=== PATIENT | male | born 1985 | race Caucasian/White ===

== ENCOUNTER 2022-01-29 19:43 | Emergency (ER) | payer BC, SELFPAY ==
[2022-01-29 19:50] VITALS: BP 104/64; PULSE 18; RESP 18; TEMP 36.6; O2SAT 99; BMI 29.4
--- NOTE | 2022-01-29 21:53 | W.ED.GENADLT ---
Documented by User: HESHAM Addison 01/29/22 23:14 HPI - General Adult General: Chief complaint: General Medical Stated complaint: pain in groin Time Seen by Provider: 01/29/22 21:51 History of Present Illness: 36-year-old male patient comes in today with complaints of right testicular pain. Patient reports that he notes a palpable cyst like structure to the area just above the testicle on the right side. Patient was treated for 7 days with doxycycline a week ago for probable epididymitis. Patient went back to the urgent care today and was referred to the emergency room for concerns of possible testicular torsion. Associated symptoms: Deny chest pain, dyspnea or rash Review of Systems General: Reports: 10 or more systems reviewed and unremarkable except in HPI and below Const: Denies: fever(s) Card: Denies: chest pain Resp: Denies: dyspnea : Reports: testicular pain; Denies: penile discharge Musc: Denies: back pain Skin/Breast: Denies: rash PFSH ED PFSH: Social History Smoking and tobacco status: never smoked Physical Exam Const: COMMON NORMALS: alert Neck/C-Spine: COMMON NORMALS: full ROM Resp: COMMON NORMALS: normal respiratory effort Cardio: COMMON NORMALS: regular rate RATE: regular rate : PENIS: normal penis and circumcised TESTES: Yes testicular lie normal and Yes epididymal mass Epididymal mass laterality: right Extremity: COMMON NORMALS: normal to inspection Neuro: SENSORIUM/ORIENTATION: Yes alert Skin: COMMON NORMALS: no rashes or lesions noted GENERAL SKIN EXAM: no rashes or lesions noted Course Vital Signs: Vital signs: Vital Signs Temperature 98 F 01/29/22 19:50 Pulse Rate 18 L 01/29/22 19:50 Respiratory Rate 18 01/29/22 19:50 Blood Pressure 104/64 01/29/22 19:50 Pulse Oximetry 99 01/29/22 19:50 [facility] - General Adult Medical Decision Making 36-year-old male patient comes in today for complaints of right testicular pain. On exam we note a nodule to the right epididymal sac of the right testicle. Remainder of exam was unremarkable. Vital signs were normal. Differential diagnosis includes but not limited to epididymitis, epididymal cyst, testicular torsion. Ultrasound of the scrotum noted no epididymitis or testicular torsion but did see a small epididymal cyst. We will go ahead and cover with Bactrim to cover for E. coli and secondary infection Case management requested for follow-up with urology. Patient reported understanding agreed to plan. Lab Data Radiology Impressions Scrotum Ultrasound 01/29/22 21:59 IMPRESSION: Small right epididymal head cyst. Otherwise unremarkable exam. Laboratory Results Urine Color Yellow (Yellow) 01/29/22 23:15 Urine Appearance Clear (CLEAR) 01/29/22 23:15 Urine pH 6 (5-7) 01/29/22 23:15 Ur Specific [place] 1.015 (1.005-1.030) 01/29/22 23:15 Urine Protein Neg (Negative) 01/29/22 23:15 Urine Glucose (UA) Norm (Normal) 01/29/22 23:15 Urine Ketones Negative (Negative) 01/29/22 23:15 Urine Blood Neg (Negative) 01/29/22 23:15 Urine Nitrate Negative (Negative) 01/29/22 23:15 Urine Bilirubin Neg (Negative) 01/29/22 23:15 Urine Urobilinogen Norm mg/dL (Negative) 01/29/22 23:15 Ur Leukocyte Esterase Negative (Negative) 01/29/22 23:15 Discharge Plan Discharge Patient Disposition: Home Clinical Impression: Epididymal cyst Condition: Stable Prescriptions: New sulfamethoxazole-trimethoprim 800-160 mg tablet 1 tab PO BID 7 Days Qty: 14 0RF No Action bupropion HCl [Wellbutrin SR] 150 mg tablet sustained-release 12 hr 150 mg PO BID 0RF Discharge Orders: Discharge ED (Routine); Ordered 01/29/22 Ordered By: Addison Jones Discharge Diet: Usual diet Discharge Activity: Increase activity as tolerated Patient Instructions: Scrotal Pain (ED) Activity Restrictions/Additional Instructions: Drink plenty of fluids. Use acetaminophen and ibuprofen for pain. Take antibiotics 1 tablet twice a day for the next 7 days. Follow-up with urologist for further recommendations. Return to ER for new concerns. Coding Level of Care Code ED Deep Fat Cook Fry for [place]rence[place] Fwd Exam Detailed Documented by User: Mayank Flynn DO 01/30/22 00:51 HPI - General Adult General: Chief complaint: General Medical Stated complaint: pain in groin Time Seen by Provider: 01/29/22 21:51 [facility] ED PFSH: Social History Smoking and tobacco status: never smoked Course Vital Signs: Vital signs: Vital Signs Temperature 98 F 01/29/22 19:50 Pulse Rate 18 L 01/29/22 19:50 Respiratory Rate 18 01/29/22 19:50 Blood Pressure 104/64 01/29/22 19:50 Pulse Oximetry 99 01/29/22 19:50 MDM - General Adult Medical Decision Making 36-year-old male patient comes in today for complaints of right testicular pain. On exam we note a nodule to the right epididymal sac of the right testicle. Remainder of exam was unremarkable. Vital signs were normal. Differential diagnosis includes but not limited to epididymitis, epididymal cyst, testicular torsion. Ultrasound of the scrotum noted no epididymitis or testicular torsion but did see a small epididymal cyst. We will go ahead and cover with Bactrim to cover for E. coli and secondary infection Case management requested for follow-up with urology. Patient reported understanding agreed to plan. This patient was originally seen by HESHAM Severino.? I agree with his history, evaluation, and treatment. Lab Data Radiology Impressions Scrotum Ultrasound 01/29/22 21:59 IMPRESSION: Small right epididymal head cyst. Otherwise unremarkable exam. Laboratory Results Urine Color Yellow (Yellow) 01/29/22 23:15 Urine Appearance Clear (CLEAR) 01/29/22 23:15 Urine pH 6 (5-7) 01/29/22 23:15 Ur Specific [place] 1.015 (1.005-1.030) 01/29/22 23:15 Urine Protein Neg (Negative) 01/29/22 23:15 Urine Glucose (UA) Norm (Normal) 01/29/22 23:15 Urine Ketones Negative (Negative) 01/29/22 23:15 Urine Blood Neg (Negative) 01/29/22 23:15 Urine Nitrate Negative (Negative) 01/29/22 23:15 Urine Bilirubin Neg (Negative) 01/29/22 23:15 Urine Urobilinogen Norm mg/dL (Negative) 01/29/22 23:15 Ur Leukocyte Esterase Negative (Negative) 01/29/22 23:15 Discharge Plan Discharge Patient Disposition: Home Clinical Impression: Epididymal cyst Condition: Stable Prescriptions: New sulfamethoxazole-trimethoprim 800-160 mg tablet 1 tab PO BID 7 Days Qty: 14 0RF No Action bupropion HCl [Wellbutrin SR] 150 mg tablet sustained-release 12 hr 150 mg PO BID 0RF Discharge Orders: Discharge ED (Routine); Ordered 01/29/22 Ordered By: Addison Jones Discharge Diet: Usual diet Discharge Activity: Increase activity as tolerated Patient Instructions: Scrotal Pain (ED) Activity Restrictions/Additional Instructions: Drink plenty of fluids. Use acetaminophen and ibuprofen for pain. Take antibiotics 1 tablet twice a day for the next 7 days. Follow-up with urologist for further recommendations. Return to ER for new concerns. Coding Level of Care Code ED Deep Fat Cook Fry for [place] Fwd Exam Detailed
--- NOTE | 2022-01-29 21:59 | USR_ITS ---
PROCEDURE INFORMATION: Exam: US Scrotum and Artery or Vein of the Abdominal and/or Reproductive Organs, Limited Scrotum Exam date and time: 01/29/2022 10:12 PM Age: 36 years old Clinical indication: Scrotum pain; Additional info: Right epididymal mass TECHNIQUE: Imaging protocol: Real-time ultrasound of the scrotum. Real-time duplex ultrasound scan of the arterial or venous flow with cardona scale, color Doppler flow and spectral waveform analysis with image documentation. Limited Duplex exam focused of the scrotum. Duplex images required to evaluate for torsion and other vascular conditions. COMPARISON: No relevant prior studies available. FINDINGS: Right testicle: Right testicle measures 4.3 x 2.4 x 2.7 cm. Left testicle: Left testicle measures 4.1 x 2.3 x 2.7 cm. Epididymides: There is a right epididymal head cyst measuring 6 x 4 by 5 mm with single thin septation. Otherwise no significant epididymal enlargement or solid mass. No regional hyperemia to suggest acute epididymitis. Scrotum: Normal. Valsalva images were not obtained however no large varicoceles are present. No hydrocele. No intratesticular mass. Symmetric testicular parenchymal flow with normal spectral waveforms with no evidence of torsion/ischemia. US/US scrotum [id number] IMPRESSION: Small right epididymal head cyst. Otherwise unremarkable exam.
[2022-01-29 23:19] LABS: Add Urine Microscopic? NO; Charge for UA Resulting for Rev
[2022-01-29] MEDS: sulfamethoxazole-trimeth DS 160-800 mg Tablet 1 TAB PO (23:27)
[2022-01-29 23:31] LABS: Bilirubin Urine Neg (Negative); Blood Urine Neg (Negative); Glucose Urine UA Norm (Normal); Ketones Urine Negative (Negative); Leukocyte Esterase Urine Negative (Negative); Nitrate Urine Negative (Negative); Protein Urine Neg (Negative); Specific Gravity, Urine 1.015 (1.005-1.030); Urine Appearance Clear (CLEAR); Urine Color Yellow (Yellow); Urobilinogen Urine Norm (Negative); pH Urine 6 (5-7)
--- NOTE | 2022-02-01 11:30 | DCPLANNER ---
Addendum entered by Yana Ernst 05/18/22 13:50: Patient had a follow up appointment scheduled for 05.17.22 with urology - patient did attend appointment. Addendum entered by Yana Ernst 02/11/22 16:15: Patient has a follow up appointment scheduled for Tuesday, May 17, 2022 at 2:[address] Renee. Clinic will call patient with appointment information. Original Note: financial services manager had message to schedule a follow up appointment for patient with urology. financial services manager sent patients information to the front office staff at urology. Patients information will be printed and reviewed. Clinic will call patient with appointment information.
== END 2022-01-29 23:30 | disposition home or self-care (01) ==
PROVIDERS: Emergency Provider Nurse Practitioner Family
DX: R10.30 Lower abdominal pain, unspecified (principal); N50.3 Cyst of epididymis
CPT/HCPCS: 76870; 81003; 87491; 87591; 99283

== ENCOUNTER 2023-01-30 12:07 | Outpatient (CLI) | payer BC, SELFPAY ==
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
== END 2023-01-30 12:08 | disposition home or self-care (01) ==
LOC: RAD 12:11
PROVIDERS: PCP Nurse Practitioner Family; Visit Provider Nurse Practitioner Family
DX: M25.511 Pain in right shoulder (principal)
CPT/HCPCS: 73030

== ENCOUNTER 2023-02-24 07:07 | Outpatient (CLI) | payer BC, SELFPAY ==
--- NOTE | 2023-02-24 07:18 | MR_ITS ---
WS: [id number] EXAMINATION: MR shoulder RT wo con* [id number] ORDER DATE: 02/24/2023 7:22 AM COMPARISON: None. HISTORY: ACUTE PAIN OF RIGHT SHOULDER CONTRAST: None. TECHNIQUE: Axial T2 STAR, coronal proton density fat sat, sagittal T2 fat sat, sagittal proton densit y fat sat, axial proton density fat sat, coronal T2 fat sat, and coronal T1 performed. After contrast , axial T1 fat sat, coronal T1 fat sat, and sagittal T1 fat sat were performed. FINDINGS: Mild degenerative arthritis AC joint with mild downsloping acromion. Subacromial spurring. Small amou nt of fluid in the AC joint. Small subacromial subdeltoid effusion. Slight thinning of the distal sup raspinatus with tendinopathy distally. Infraspinatus is intact. Normal teres minor. Normal subscapula ris tendon. Biceps tendon is intact within the bicipital groove. Intra-articular biceps tendon is int act. Biceps labral anchor appears intact. MR/MR shoulder RT wo con* [id number] IMPRESSION: 1. Small amount of fluid and edema AC joint with mild downsloping of the acrom ium with subacromial spurring. Small amount of subacromial subdeltoid fluid. 2. Impingement on the distal supraspinatus with tendinopathy. 3. No high-grade rotator cuff tears. 4. Biceps tendon intact within the bicipital groove. 5. Normal intra-articular biceps tendon.
== END 2023-02-24 07:08 | disposition home or self-care (01) ==
PROVIDERS: PCP Nurse Practitioner Family; Visit Provider Nurse Practitioner Family
DX: M25.511 Pain in right shoulder (principal); S49.91XA Unspecified injury of right shoulder and upper arm, initial encounter; X58.XXXA Exposure to other specified factors, initial encounter; M25.411 Effusion, right shoulder; M75.81 Other shoulder lesions, right shoulder; M25.811 Other specified joint disorders, right shoulder
CPT/HCPCS: 73221

== ENCOUNTER → 2023-03-25 10:44 | Outpatient (BNVA) | payer BC, SELFPAY | PROVIDERS: PCP Nurse Practitioner Family; Visit Provider Emergency Medicine | DX: R39.9 Unspecified symptoms and signs involving the genitourinary system (principal) | CPT/HCPCS: 81000; 87086 ==

== ENCOUNTER → 2023-04-06 08:08 | Outpatient (BNVA) | payer BC, SELFPAY | PROVIDERS: PCP Nurse Practitioner Family; Referring Provider Nurse Practitioner Family; Visit Provider Specialist | DX: M25.511 Pain in right shoulder (principal); M75.41 Impingement syndrome of right shoulder; M67.911 Unspecified disorder of synovium and tendon, right shoulder | CPT/HCPCS: 73030 ==

== ENCOUNTER → 2023-09-01 07:55 | Outpatient (BNVA) | payer BC, SELFPAY | PROVIDERS: PCP Nurse Practitioner Family; Visit Provider Nurse Practitioner | DX: M75.41 Impingement syndrome of right shoulder (principal); M67.911 Unspecified disorder of synovium and tendon, right shoulder | CPT/HCPCS: 73030 ==

== ENCOUNTER → 2023-12-12 07:41 | Outpatient (BNVA) | payer BC, SELFPAY | PROVIDERS: PCP Nurse Practitioner Family; Visit Provider Podiatrist Foot & Ankle Surgery | DX: M92.61 Juvenile osteochondrosis of tarsus, right ankle; M67.88 Other specified disorders of synovium and tendon, other site | CPT/HCPCS: 73630 ==

== ENCOUNTER → 2024-07-02 08:16 | Outpatient (BNVA) | payer BC, SELFPAY | PROVIDERS: PCP Nurse Practitioner Family; Visit Provider Podiatrist Foot & Ankle Surgery | DX: M92.62 Juvenile osteochondrosis of tarsus, left ankle (principal); M92.61 Juvenile osteochondrosis of tarsus, right ankle; M67.88 Other specified disorders of synovium and tendon, other site | CPT/HCPCS: 73630 ==

== ENCOUNTER 2024-08-16 06:59 | Outpatient (RCR) | payer BC, SELFPAY | END 2024-08-25 23:59 | disposition home or self-care (01) | LOC: SPT 06:59 | PROVIDERS: Visit Provider Podiatrist Foot & Ankle Surgery | DX: M79.671 Pain in right foot (principal); M79.672 Pain in left foot | CPT/HCPCS: 97110; 97140; 97161 ==

== ENCOUNTER 2024-08-26 06:00 | Outpatient (RCR) | payer BC, SELFPAY | END 2024-09-11 23:59 | disposition home or self-care (01) | LOC: SPT 06:00 | PROVIDERS: Visit Provider Podiatrist Foot & Ankle Surgery | DX: M92.62 Juvenile osteochondrosis of tarsus, left ankle (principal); M92.61 Juvenile osteochondrosis of tarsus, right ankle | CPT/HCPCS: 97110; 97140 ==